=== PATIENT | female | born 1945 | race Caucasian/White ===

== ENCOUNTER 2020-06-24 08:05 | Outpatient (RCR) | payer MEDICARE, SELFPAY | END 2020-07-23 12:00 | disposition home or self-care (01) | LOC: HO.WCC 08:05 | PROVIDERS: Visit Provider Physician Assistant Surgical | DX: L89.154 Pressure ulcer of sacral region, stage 4 (principal); E44.1 Mild protein-calorie malnutrition; E88.09 Other disorders of plasma-protein metabolism, not elsewhere classified; I25.2 Old myocardial infarction; I10 Essential (primary) hypertension; Z93.3 Colostomy status; Z93.1 Gastrostomy status | CPT/HCPCS: 11042 ==

== ENCOUNTER 2020-06-24 10:16 | Outpatient (REF) | payer MEDICARE, SELFPAY ==
[2020-06-24 12:47] LABS: Albumin Level 3.1 g/dL (3.5-5.0)
== END 2020-06-24 10:17 | disposition home or self-care (01) ==
LOC: HO.LAB 10:16
PROVIDERS: PCP Internal Medicine; Visit Provider Physician Assistant Surgical
DX: Z13.89 Encounter for screening for other disorder (principal)
CPT/HCPCS: 82040; 84134